=== PATIENT | female | born 1965 | race Two or more races ===

== ENCOUNTER 2024-09-14 11:57 | Outpatient (CLI) | payer BC ==
[2024-09-14 12:34] LABS: Hematocrit 42.7 % (36.0-46.0); Hemoglobin 14.4 g/dL (12.2-16.2); Mean Corpuscular Hemoglobin 28.7 pg (28.0-32.0); Mean Corpuscular Volume 85.1 fL (80.0-100.0); Nucleated Red Blood Cells % 0.0 %
[2024-09-14 13:42] LABS: Alanine Aminotransferase 21 U/L (7-40); Alkaline Phosphatase 106 U/L (46-116); Anion Gap 7 (5-15); BUN/Creatinine Ratio 10.7 (10.0-20.0); Blood Urea Nitrogen 9 mg/dL (9-23); Calcium 9.9 mg/dL (8.7-10.4); Carbon Dioxide 30 mmol/L (20-31); Chloride 105 mmol/L (98-107); Glucose 93 mg/dL (74-106); Potassium 4.1 mmol/L (3.5-5.1); Sodium 142 mmol/L (136-145); Total Protein 7.6 g/dL (5.7-8.2); Triglycerides 121 mg/dL (< 150)
[2024-09-14 13:43] LABS: Bilirubin, Total 0.5 mg/dL (0.2-1.0); HDL Cholesterol 57 mg/dL (40-59)
[2024-09-14 13:44] LABS: Albumin 5.0 g/dL (3.2-4.8); Cholesterol 219 mg/dL (< 200)
[2024-09-15 11:31] LABS: Hepatitis A Total Antibody Positive (Negative); Hepatitis B Surface Antigen Negative (Negative); Hepatitis C Antibody Negative (Negative)
== END 2024-09-14 17:00 | disposition home or self-care (01) ==
LOC: LAB 11:57
PROVIDERS: ATTEND Licensed Practical Nurse
DX: Z12.11 Encounter for screening for malignant neoplasm of colon (principal); Z13.6 Encounter for screening for cardiovascular disorders; Z13.29 Encounter for screening for other suspected endocrine disorder; Z00.01 Encounter for general adult medical examination with abnormal findings; Z13.1 Encounter for screening for diabetes mellitus; Z13.220 Encounter for screening for lipoid disorders; E55.9 Vitamin D deficiency, unspecified
CPT/HCPCS: 36415; 80053; 80061; 82043; 82274; 82306; 83036; 84443; 85025; 86704; 86706; 86708; 86803; 87340

== ENCOUNTER 2025-01-05 06:50 | Outpatient (CLI) | payer BC ==
[2025-01-05 07:28] LABS: Hematocrit 42.9 % (36.0-46.0); Hemoglobin 14.4 g/dL (12.2-16.2); Mean Corpuscular Hemoglobin 28.6 pg (28.0-32.0); Mean Corpuscular Volume 85.1 fL (80.0-100.0); Nucleated Red Blood Cells % 0.0 %
[2025-01-05 08:31] LABS: Alanine Aminotransferase 33 U/L (7-40); Calcium 10.4 mg/dL (8.7-10.4); Chloride 104 mmol/L (98-107)
[2025-01-05 08:32] LABS: Anion Gap 9 (5-15); BUN/Creatinine Ratio 13.3 (10.0-20.0); Blood Urea Nitrogen 11 mg/dL (9-23); Glucose 104 mg/dL (74-106); Potassium 4.5 mmol/L (3.5-5.1); Sodium 144 mmol/L (136-145); Total Protein 8.2 g/dL (5.7-8.2)
[2025-01-05 08:33] LABS: Bilirubin, Total 0.7 mg/dL (0.2-1.0); HDL Cholesterol 51 mg/dL (40-59)
[2025-01-05 08:39] LABS: Albumin 4.9 g/dL (3.2-4.8); Alkaline Phosphatase 131 U/L (46-116); Carbon Dioxide 31 mmol/L (20-31); Cholesterol 243 mg/dL (< 200); Triglycerides 151 mg/dL (< 150)
== END 2025-01-05 17:00 | disposition home or self-care (01) ==
LOC: LAB 06:50
PROVIDERS: ATTEND Licensed Practical Nurse
DX: E78.2 Mixed hyperlipidemia (principal); R73.03 Prediabetes
CPT/HCPCS: 36415; 80053; 80061; 83036; 85025